=== PATIENT | female | born 1980 | race Caucasian/White ===

== ENCOUNTER 2024-12-03 13:17 | Outpatient (CLI) | payer OTHER | END 2024-12-03 13:18 | disposition home or self-care (01) | LOC: BICRAD 13:17 | PROVIDERS: ATTEND Family Medicine | DX: M19.011 Primary osteoarthritis, right shoulder (principal); M79.641 Pain in right hand; J45.909 Unspecified asthma, uncomplicated | CPT/HCPCS: 71046 ==